=== PATIENT | male | born 2000 | race Caucasian/White ===

== ENCOUNTER 2023-10-13 19:01 | Emergency (ER) | payer BC, OTHER, SELFPAY ==
[2023-10-13 19:04] VITALS: BP 141/78
--- NOTE | 2023-10-13 21:02 | ED.SKININJ ---
HPI-Injury
General
Chief Complaint: Head Injury
Source: patient and family
Exam Limitations: none
Time Seen by Provider: 10/13/23 20:33
Nursing documentation reviewed up to this point in time: agreed with
History of Present Illness-Injury
Is this injury a work related problem?: No
Is pt an associate of [facility]/[place]?: No
Initial Injury comments:
Patient fell while skateboarding. Hit right parietal scalp on pavement. +LOC. Sustained abrasions to bilateral dorsal hands, right posterior elbow, right cheeck. Brought to ED by mother for eval
Past History
Past History
ED Past Medical History: Other (seasonal allergies.)
ED Past Surgical History: None
Review of Systems
Review of Systems
Allergies reviewed?: Yes
All Other Systems: ROS reviewed and negative except as documented in HPI and ROS
Constitutional: Reports no symptoms
EENT: Reports no symptoms
Respiratory: Reports no symptoms
Cardiac: Reports no symptoms
ABD/GI: Reports no symptoms
: Reports no symptoms
Musculoskeletal: Reports no symptoms
Skin: Reports other (abrasions to right scalp, right cheek right elbow,bilateral hands)
Neurological: Reports headache
Psychiatric: Reports no symptoms
Skin Exam
Abrasion
Right Parietal:
Description of abrasion: superfical/clean
Right Cheek:
Description of abrasion: superfical/clean
Right Elbow:
Description of abrasion: superfical/clean
Bilateral Dorsal Hand:
Description of abrasion: superfical/clean
Phy Exam
General Physical Exam
General Presentation: well appearing and no apparent distress
General age: appears stated age
General Skin: warm and dry
General Habitus: normal
General Mental: alert
General Hydration: appears well hydrated
ENT Exam
ENT Exam: EOMI, TM's normal, neck supple and normocephalic
Eye Exam
Eye Exam: PERRL, EOMI, conjunctiva normal and globe normal
Pulmonary Exam
Pulmonary Exam: no respiratory distress and chest non tender
Gastrointestinal Exam
Gastrointestinal Exam: non tender, soft and no organomegaly
Neurological Exam
Neurological Exam: alert, oriented x3, CN II-XII intact, no motor deficits, no sensory deficits, speech normal and normal gait
[place] Coma Scale
Eye Opening: Spontaneous
Verbal Response: Oriented
Motor Response: Obeys Commands
GCS Total Score: 15
Mental
Mental Status: oriented to person, oriented to place, oriented to time and usual mental status
Describe Speech: normal speech
Cranial
Cranial Nerves: normal
Motor
Seizure Activity: none
Gait: normal
Tremors: none
Right upper extremity: 4
Right lower extremity: 4
Left upper extremity: 4
Left lower extremity: 4
Bilateral upper extremities: 4
Bilateral lower extremities: 4
Sensory
Sensory Exam: intact
Cerebellar
Cerebellar Function: normal finger to nose, normal heel to georges and normal Romberg test
Musculoskeletal Exam
Musculoskeletal Exam: full ROM, neuro vasc intact and other (Full nonpainful ROM to head/neck, back upper and lower extremities)
Skin Exam
Skin Exam: normal color and warm/dry
Psychiatric Exam
Psychiatric Exam: normal mood/affect
Course
Orders/Labs/Results
Orders:
Orders
10/13/23 19:07
CT Head W/o Iv Contrast Urgent
Comment:
Reason For Exam: head injury
10/13/23 21:00
Ibuprofen [Motrin] 600 mg PO NOW STA
Vital Signs
Initial and Last Documented VS:
Initial Vital Signs
Temp Pulse Resp BP Pulse Ox
98.3 F 97 18 141/78 99
10/13/23 19:04 10/13/23 19:04 10/13/23 19:04 10/13/23 19:04 10/13/23 19:04
Last Documented Vital Signs
Temp Pulse Resp BP Pulse Ox
98.3 F 97 18 141/78 99
10/13/23 19:04 10/13/23 19:04 10/13/23 19:04 10/13/23 19:04 10/13/23 19:04
*Radiology
Radiology exam reviewed: radiology read reviewed
*Pulse Oximetry
Patient hypoxic: no
*Critical Care Note
Total Time (30-74mins, 75-104mins- exclusive of procedures): Not Applicable
ED Attending Note
-
Portions of this chart may have been created with voice recognition software.� Occasional wrong word or��sound alike� substitutions may have occurred due to the inherent limitations of voice recognition software.
Discharge Plan
Departure
Patient Disposition: Home (Routine Discharge)
Date of Disposition: 10/13/23
Time of Disposition: 21:00
Patient with high blood pressure during this ER visit?: No
Condition: Good
Covid-19: Not Applicable
Discharge Problem:
Head injury
Instructions: Wound Care (DC), Head Injury in Adults (DC), Contusion (DC), Abrasions ED
Prescriptions:
No Action
cetirizine 10 MG tablet
10 mg PO DAILY
azelastine 1 SPRAY aerosol,spray
1 spray intranasal BID
fluticasone propionate 1 SPRAY spray,suspension
1 spray intranasal DAILY
Referrals:
Seth Carter MD [Family Provider] - Follow up in 2-3 days
Interventions
Interventions:
*Risk Screen - Suicide Last Done: 10/13/23 19:04
*General Assessment Last Done: 10/13/23 19:04
*Neglect/Abuse Screening Last Done: 10/13/23 19:04
ED- Fall Risk Assessment Last Done: 10/13/23 20:43
ED- Neurological Assessment Last Done: 10/13/23 20:43
ED-Skin Assessment Last Done: 10/13/23 20:43
Discharge Date and Time
Print Language: POLISH
[2023-10-13 21:09] VITALS: BP 134/69
[2023-10-13] MEDS: MOTRIN 600 MG PO (21:09)
== END 2023-10-13 21:11 | disposition home or self-care (01) ==
LOC: EMR 19:01
PROVIDERS: EMERGENCY PHYSICIAN Emergency Medicine; FAMILY PHYSICIAN Pediatrics Adolescent Medicine
DX: S09.90XA Unspecified injury of head, initial encounter (principal); V00.131A Fall from skateboard, initial encounter; Y93.51 Activity, roller skating (inline) and skateboarding
CPT/HCPCS: 99284; 70450